=== PATIENT | male | born 2005 | race Caucasian/White ===

== ENCOUNTER → 2024-01-28 11:45 | Outpatient (REF) | payer OTHER, SELFPAY ==
[2024-01-30 23:02] LABS: Quantiferon Mitogen minus NIL 9.96 IU/mL; Quantiferon NIL 0.04 IU/mL; Quantiferon Plus TB1 minus NIL 0.01 IU/mL (<=0.34); Quantiferon Plus TB2 minus NIL 0.01 IU/mL (<=0.34); Quantiferon TB Gold Plus Negative (Negative)
== END ==
LOC: OHS 11:45
PROVIDERS: ATTENDING PHYSICIAN Nurse Practitioner Family
DX: Z23 Encounter for immunization (principal)
CPT/HCPCS: 36415; 86480

== ENCOUNTER 2024-02-27 10:10 | Emergency (ER) | payer OTHER, BC, SELFPAY ==
[2024-02-27 10:33] VITALS: BP 120/79
[2024-02-27 11:01] VITALS: BMI 32.2
[2024-02-27 11:06] VITALS: BP 108/64
[2024-02-27 11:30] LABS: % Basophils 0.6 % (0-2); % Eosinophils 2.9 % (0-6); % Immature Granulocytes 0.4 % (0-0.5); % Lymphocytes 34.4 % (20.5-51.1); % Monocytes 8.3 % (1.7-9.3); % Neutrophils 53.4 % (42.2-75.2); Absolute Eosinophils 0.1 10^3/uL (0-0.7); Absolute Lymphocytes 1.7 10^3/uL (1.2-3.4); Absolute Monocytes 0.4 10^3/uL (0.1-0.6); Absolute Neutrophils 2.6 10^3/uL (1.4-6.5); Hematocrit 35.8 % (39.0-52.0); Hemoglobin 12.8 g/dL (13.0-18.0); Mean Corp Hgb Conc. 35.8 g/dL (33.0-37.0); Mean Corpuscular Hgb 32.1 pg (27.0-31.0); Mean Corpuscular Volume 89.7 fL (80.0-94.0); Mean Platelet Volume 9.6 fL (7.4-10.4); Nucleated Red Blood Cells % 0 % (-); Platelet Count 258 10^3/uL (130-400); Red Blood Cell Count 3.99 10^6/uL (4.70-6.10); Red Cell Dist. Width 12.4 % (11.5-14.5); White Blood Cell Count 4.8 10^3/uL (4.8-10.8)
--- NOTE | 2024-02-27 11:31 | ED.GENMED ---
History of Present Illness
General
Chief Complaint: Change in Mental Status
Time Seen by Provider: 02/27/24 10:53
History of Present Illness
History of Present Illness:
18-year-old male with history of type 1 diabetes with insulin pump presenting to the emergency department for concern of hypoglycemia and episode of altered mental status. Patient reports he was at work yesterday and his sugar dropped low twice.
It was resolved after drinking some juice, however after the second episode, he had an episode where he believes he either had a seizure or loss consciousness and was and does not remember what happened for the next 30 minutes. Does not believe
that he fell to the ground. He reports that he has had seizures in the past secondary to profound hypoglycemia, however the seizures have been tonic-clonic. He has had issues recently with his insulin pump, is not sinking with his glucometer so is
inappropriately administering insulin. He reports he is to call the company. He reports presently he is feeling foggy. Denies focal weakness or sensory deficits. Denies fever, chest pain, difficulty breathing. Denies visual changes. Reports
some generalized fatigue. Denies additional acute medical complaints
Past History
Social History
Tobacco: Non-smoker
Alcohol: None
Drug: None
Phy Exam
Physical Exam
Physical Exam:
General: Well-appearing, no clinical signs of dehydration, nontoxic and in no acute distress
HEENT: protecting airway, pupils equal and reactive bilaterally, extraocular movements intact
Neck: appears supple
CV: Normal heart rate, regular rhythm, no evidence of cyanosis
Resp: No accessory muscle use, no increased work of breathing, lungs clear to auscultation bilaterally
Abd: Soft and non-distended, no tenderness to palpation, normal bowel sounds
Extremities: No deformities, no swelling, no erythema, pulses and sensation intact
Neuro: alert, no focal neurologic deficit
: deferred
Rectal: deferred
Psych: Normal affect
Skin: Intact
Course
Orders/Labs/Results
Orders:
Orders
02/27/24 11:16
CMP [Comprehensive Metabolic Panel] Urgent
Complete Blood Count/With Diff Urgent
TSH Reflex To Free T4 Urgent
Comment: ADD ON
02/27/24 11:18
Add On- LAB Urgent
Comments:: in lab
Tests Added?: TSH reflex free
02/27/24 11:22
CT Head W/o Iv Contrast Urgent
Comment:
Reason For Exam: seizure vs syncope, amnesia episode
Abnormal Lab Results
02/27/24
11:16
RBC 3.99 L 10^6/uL
(4.70-6.10)
Hgb 12.8 L g/dL
(13.0-18.0)
Hct 35.8 L %
(39.0-52.0)
MCH 32.1 H pg
(27.0-31.0)
Chloride 108 H mmol/L
(98-107)
Glucose 175 H mg/dl
(70-99)
02/27/24 11:16
02/27/24 11:16
Vital Signs
Initial and Last Documented VS:
Initial Vital Signs
Temp Pulse Resp BP Pulse Ox
98.9 F 99 18 120/79 96
02/27/24 10:33 02/27/24 10:33 02/27/24 10:33 02/27/24 10:33 02/27/24 10:33
Last Documented Vital Signs
Temp Pulse Resp BP Pulse Ox
98.9 F 99 18 108/64 95
02/27/24 10:33 02/27/24 10:33 02/27/24 10:33 02/27/24 11:06 02/27/24 11:07
MDM/Problems Addressed
MDM/Problems Addressed:
18-year-old male with history of type 1 diabetes presenting for episode of hypoglycemia yesterday with additional episode of altered mental status. Vital signs on arrival are normal.
On exam, patient is resting comfortably, no acute distress or discomfort. He is awake, alert, oriented. Suspect symptoms glycemic episode. Symptoms do not appear consistent with seizure. Patient reports that he did not fall to the ground,
however event was not witnessed by anyone else. Unclear if he had a syncopal episode. Suspect that his symptoms could be secondary to malfunction of his insulin pump, notes that it has been inappropriately giving him insulin. No focal neurologic
deficits on exam. However given unclear etiology and details of event yesterday with amnesia, will obtain CT brain imaging. Will also obtain laboratory analysis, TSH. Advised that patient call his insulin pump company regarding troubleshooting
with his device.
13:40 -patient's labs are unremarkable. CT brain without acute intracranial abnormality. On reassessment, resting comfortably. Vitals remained stable. Glucose stable. Patient called his company, they are sending him a new monitor. Advise that
he continue to check his glucose frequently to keep up with the insulin in the event that he is inappropriately administered insulin. 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 Strict return precautions communicated to patient who
verbalized understanding
*Critical Care Note
Total Time (30-74mins, 75-104mins- exclusive of procedures): Not Applicable
ED Attending Note
-
Portions of this chart may have been created with voice recognition software.� Occasional wrong word or��sound alike� substitutions may have occurred due to the inherent limitations of voice recognition software.
Discharge Plan
Departure
Prescriptions:
No Action
insulin glargine [Lantus U-100 Insulin] 1,000 UNITS/10 ML solution
18 units SC HS
insulin glargine [Lantus U-100 Insulin] 1,000 UNITS/10 ML solution
20 units SC .DAILYAM
insulin aspart U-100 [Novolog U-100 Insulin aspart] 1,000 UNITS/10 ML solution
0 units SC ACHS
Patient Comments:
Sliding scale for carb coverage and sugar correction
testosterone cypionate 200 MG/1 ML oil
0.3 ml IM SA@1200
methylphenidate HCl 10 MG tablet
20 mg PO DAILY
aripiprazole 2 MG tablet
2 mg PO DAILY
mirtazapine 30 MG tablet
37.5 mg PO HS Qty: 0 0RF
Referrals:
PRIVATE,PHYSICIAN [Family Provider] -
Interventions
Interventions:
*Risk Screen - Suicide Last Done: 02/27/24 11:01
*General Assessment Last Done: 02/27/24 11:01
*Neglect/Abuse Screening Last Done: 02/27/24 11:01
ED- Fall Risk Assessment Last Done: 02/27/24 11:01
*ED COVID-19 Vaccine History Last Done: 02/27/24 10:33
ED- Pulmonary Assessment Last Done: 02/27/24 11:01
ED- Neurological Assessment Last Done: 02/27/24 11:01
ED- Cardiac Assessment Last Done: 02/27/24 11:01
ED Swallowing Screen Last Done: 02/27/24 11:01
Discharge Date and Time
Print Language: SAMI
[2024-02-27 11:46] LABS: ALT (SGPT) 25 U/L (0-50); AST (SGOT) 30 U/L (17-59); Albumin 4.1 g/dl (3.5-5.0); Alkaline Phosphatase 104 U/L (38-126); Blood Urea Nitrogen 13 mg/dl (9-20); Calcium 9.4 mg/dl (8.4-10.2); Carbon Dioxide 26 mmol/L (22-30); Chloride 108 mmol/L (98-107); Estimated Creatinine Clearance > 125 ml/min; Glucose 175 mg/dl (70-99); Potassium 4.2 mmol/L (3.5-5.1); Sodium 138 mmol/L (135-145); Total Bilirubin 0.5 mg/dl (0.2-1.3); Total Protein 6.9 g/dl (6.3-8.2); eGFR > 60.00
[2024-02-27 12:00] VITALS: BP 94/56
[2024-02-27 13:01] VITALS: BP 101/55
[2024-02-27 13:23] LABS: TSH Reflex To Free T4 0.71 uIU/ml (0.47-4.68)
== END 2024-02-27 14:13 | disposition home or self-care (01) ==
LOC: EMR 10:10
PROVIDERS: EMERGENCY PHYSICIAN Student in an Organized Health Care Education/Training Program
DX: R41.82 Altered mental status, unspecified (principal); E10.649 Type 1 diabetes mellitus with hypoglycemia without coma
CPT/HCPCS: 99284; 70450; 80053; 84443; 85025